=== PATIENT | female | born 1960 | race Caucasian/White ===

== ENCOUNTER 2017-04-03 03:47 | Inpatient (IN) | payer OTHER ==
[2017-04-03] VITALS (13 sets, daily range): BP systolic 109–180; BP diastolic 60–98; PULSE 55–68; RESP 14–32; TEMP 97.4–97.9; O2SAT 92–98
[2017-04-03 04:26] LABS: AUTOMATED NEUTROPHIL # 4.6 TH/MM3 (1.8-7.7); BASOPHIL % 0.6 % (0.0-2.0); EOSINOPHIL % 0.7 % (0.0-4.0); HEMATOCRIT 36.4 % (35.0-46.0); HEMOGLOBIN 12.4 GM/DL (11.6-15.3); LYMPH % 14.6 % (9.0-44.0); LYMPHOCYTE # 0.9 TH/MM3 (1.0-4.8); MEAN CELL VOLUME 90.4 FL (80.0-100.0); MEAN CORPUSCULAR HEMOGLOBIN 30.8 PG (27.0-34.0); MEAN CORPUSCULAR HGB CONC 34.1 % (32.0-36.0); MEAN PLATELET VOLUME 7.8 FL (7.0-11.0); MONO % 6.5 % (0.0-8.0); MONOCYTE # 0.4 TH/MM3 (0-0.9); NEUT % 77.6 % (16.0-70.0); PLATELET COUNT 244 TH/MM3 (150-450); RED BLOOD COUNT 4.03 MIL/MM3 (4.00-5.30); RED CELL DISTRIBUTION WIDTH 14.1 % (11.6-17.2); WHITE BLOOD COUNT 5.9 TH/MM3 (4.0-11.0)
[2017-04-03 04:28] LABS: BILIRUBIN, URINE NEG (NEG); BLOOD, URINE NEG (NEG); GLUCOSE,URINE NEG (NEG); KETONE, URINE NEG (NEG); MUCUS URINE FEW /lpf (OCC); NITRITE,URINE NEG (NEG); SQUAMOUS EPITHELIAL CELL URINE 1 /hpf (0-5); URINE COLOR LIGHT-YELLOW (YELLW/STRAW); URINE LEUKOCYTE ESTERASE NEG (NEG)
[2017-04-03 04:37] LABS: INTERNATIONAL NORMALIZED RATIO 1.1 RATIO; PROTHROMBIN TIME - PATIENT 10.8 SEC (9.8-11.6)
[2017-04-03 04:50] LABS: ALBUMIN 2.8 GM/DL (3.4-5.0); ALT (GPT) 151 U/L (10-53); AST (GOT) 140 U/L (15-37); BICARBONATE 21.8 MEQ/L (21.0-32.0); BLOOD UREA NITROGEN 7 MG/DL (7-18); CHLORIDE 105 MEQ/L (98-107); CREATININE 0.77 MG/DL (0.50-1.00); GLOMERULAR FILTRATION RATE 78 ML/MIN (>89); GLUCOSE,RANDOM 151 MG/DL (74-106); SODIUM (NA) 137 MEQ/L (136-145)
[2017-04-03 04:53] LABS: ACETAMINOPHEN LESS THAN 2.0 MCG/ML (10.0-30.0); ALKALINE PHOSPHATASE 97 U/L (45-117); TOTAL BILIRUBIN ADULT 0.2 MG/DL (0.2-1.0); TOTAL PROTEIN 6.4 GM/DL (6.4-8.2)
--- NOTE | 2017-04-03 05:44 | PD ---
HPI Chief Complaint: OD/ Ingestion Time Seen by Provider: 03:50 Travel History International Travel<30 days: No Contact w/Intl Traveler<30days: No Traveled to known affect area: No History of Present Illness HPI Patient is a 57-year-old female presents emergency department for evaluation after apparent clonidine overdose. The patient had admitted to EMS that this was an in a suicide attempt. She also endorses marijuana and alcohol use tonight. She admitted to EMS that she changed her mind and called 911 because she did not want to anymore. She has a history of anxiety and is prescribed clonidine for anxiety. No pill bottles were available on scene. The patient was initially hypotensive 60/40 and bradycardic, half milligram of atropine was given by EMS in route. On arrival the patient is GCS of 14 losing one point for eyes, she denies suicidal attempt to me. She has placed under Song act by law enforcement. Fairly somnolent this somewhat limits her history but she denies any chest pain abdominal pain nausea vomiting shortness of breath head injury neck injury. PFSH Past Medical History Bipolar Disorder: Yes Anxiety: Yes Tetanus Vaccination: Unknown Influenza Vaccination: No Past Surgical History Surgical History: No Previous Surgery Social History Alcohol Use: Yes Tobacco Use: Yes Substance Use: No Allergies-Medications (Allergen,Severity, Reaction): Uncoded Allergies: SULFA DRUGS (Allergy, Unknown, 04/03/17) Reported Meds & Prescriptions Reported Meds & Active Scripts Active Reported Gabapentin 600 Mg Tab 600 Mg PO DAILY PRN Clonidine (Clonidine HCl) 0.1 Mg Tab 1 Mg PO TID Adderall (Amphetamine-Dextroamphetamine) 20 Mg Tab 20 Mg PO BID Avoid late evening doses. Space doses at least 4 to 6 hours if more than once/day dosing. Valsartan 40 Mg Tab Unknown Dose PO DAILY Lamictal (Lamotrigine) 100 Mg Tab 100 Mg PO DAILY Cymbalta DR (Duloxetine HCl) 60 Mg Capdr 60 Mg PO DAILY Geodon (Ziprasidone) 40 Mg Cap 40 Mg PO BID Review of Systems Except as stated in HPI: all other systems reviewed are Neg Physical Exam Narrative GENERAL: Well-developed overweight female in no obvious distress SKIN: Focused skin assessment warm/dry. HEAD: Atraumatic. Normocephalic. EYES: Pupils equal and round. No scleral icterus. No injection or drainage. ENT: No nasal bleeding or discharge. Mucous membranes pink and moist. NECK: Trachea midline. No JVD. CARDIOVASCULAR: Regular rate and rhythm. No murmur appreciated. RESPIRATORY: No accessory muscle use. Clear to auscultation. Breath sounds equal bilaterally. GASTROINTESTINAL: Abdomen soft, non-tender, nondistended. Hepatic and splenic margins not palpable. MUSCULOSKELETAL: No obvious deformities. No clubbing. No cyanosis. No edema. NEUROLOGICAL: Awake and alert and oriented but somnolent. GCS of 14, moves all 4 extremities, no obvious cranial nerve deficits PSYCHIATRIC: Appropriate mood and affect; insight fair, judgment poor. Denies suicidal or homicidal ideation to me, she did endorse it to EMS personnel. Data Data Last Documented VS Vital Signs Date Time Temp Pulse Resp B/P (MAP) Pulse Ox O2 Delivery O2 Flow Rate FiO2 04/03/17 05:15 59 14 157/87 (110) 94 Nasal Cannula 3.00 04/03/17 03:54 97.9 Orders Orders Complete Blood Count With Diff (04/03/17 03:51) Comprehensive Metabolic Panel (04/03/17 03:51) Prothrombin Time / Inr (Pt) (04/03/17 03:51) Act Partial Throm Time (Ptt) (04/03/17 03:51) Urinalysis - C+S If Indicated (04/03/17 03:51) Iv Access Insert/Monitor (04/03/17 03:51) Ecg Monitoring (04/03/17 03:51) Oximetry (04/03/17 03:51) Call Poison Control (04/03/17 03:51) Drug Screen, Random Urine (04/03/17 03:51) Alcohol (Ethanol) (04/03/17 03:51) Salicylates (Aspirin) (04/03/17 03:51) Tylenol (Acetaminophen) (04/03/17 03:51) ^ Straight Catheter (04/03/17 04:06) Electrocardiogram (04/03/17 ) Salicylates (Aspirin) (04/03/17 06:09) Tylenol (Acetaminophen) (04/03/17 06:10) Acetylcysteine Inj (Acetadote Inj) (04/03/17 06:15) Acetylcysteine Inj (Acetadote Inj) (04/03/17 07:15) Acetylcysteine Inj (Acetadote Inj) (04/03/17 11:15) Admit To Inpatient (04/03/17 ) Vital Signs (Adult) Q4H (04/03/17 06:35) Activity Oob With Assistance (04/03/17 06:35) Architectural Wood Model Maker / Telemetry .CONTINUOUS (04/03/17 06:35) Sodium Chloride 0.9% Flush (Ns Flush) (04/03/17 06:45) Sodium Chloride 0.9% Flush (Ns Flush) (04/03/17 09:00) Ondansetron Inj (Zofran Inj) (04/03/17 06:45) Comprehensive Metabolic Panel (04/04/17 06:00) Complete Blood Count With Diff (04/04/17 06:00) Scd Bilateral/Knee High MORELIA.BID (04/03/17 06:35) Naloxone Inj (Narcan Inj) (04/03/17 06:45) Docusate Sodium-Senna (Philomena-Colace) (04/03/17 09:00) Magnesium Hydroxide Liq (Milk Of Magnesi (04/03/17 06:45) Sennosides (Senokot) (04/03/17 06:45) Bisacodyl Supp (Dulcolax Supp) (04/03/17 06:45) Lactulose Liq (Lactulose Liq) (04/03/17 06:45) Inpatient Certification (04/03/17 ) Tylenol (Acetaminophen) (04/03/17 08:00) Consult Psychiatry (04/03/17 ) Admit Order (Ed Use Only) (04/03/17 ) Labs Laboratory Tests Test 04/03/17 03:45 04/03/17 04:10 04/03/17 06:20 White Blood Count 5.9 TH/MM3 Red Blood Count 4.03 MIL/MM3 Hemoglobin 12.4 GM/DL Hematocrit 36.4 % Mean Corpuscular Volume 90.4 FL Mean Corpuscular Hemoglobin 30.8 PG Mean Corpuscular Hemoglobin Concent 34.1 % Red Cell Distribution Width 14.1 % Platelet Count 244 TH/MM3 Mean Platelet Volume 7.8 FL Neutrophils (%) (Auto) 77.6 % Lymphocytes (%) (Auto) 14.6 % Monocytes (%) (Auto) 6.5 % Eosinophils (%) (Auto) 0.7 % Basophils (%) (Auto) 0.6 % Neutrophils # (Auto) 4.6 TH/MM3 Lymphocytes # (Auto) 0.9 TH/MM3 Monocytes # (Auto) 0.4 TH/MM3 Eosinophils # (Auto) 0.0 TH/MM3 Basophils # (Auto) 0.0 TH/MM3 CBC Comment DIFF FINAL Differential Comment Prothrombin Time 10.8 SEC Prothromb Time International Ratio 1.1 RATIO Activated Partial Thromboplast Time 26.8 SEC Blood Urea Nitrogen 7 MG/DL Creatinine 0.77 MG/DL Random Glucose 151 MG/DL Total Protein 6.4 GM/DL Albumin 2.8 GM/DL Calcium Level 8.0 MG/DL Alkaline Phosphatase 97 U/L Aspartate Amino Transf (AST/SGOT) 140 U/L Alanine Aminotransferase (ALT/SGPT) 151 U/L Total Bilirubin 0.2 MG/DL Sodium Level 137 MEQ/L Potassium Level 4.1 MEQ/L Chloride Level 105 MEQ/L Carbon Dioxide Level 21.8 MEQ/L Anion Gap 10 MEQ/L Estimat Glomerular Filtration Rate 78 ML/MIN Salicylates Level 5.2 MG/DL 4.8 MG/DL Acetaminophen Level LESS THAN 2.0 MCG/ML LESS THAN 2.0 MCG/ML Ethyl Alcohol Level 126 MG/DL Urine Color LIGHT-YELLOW Urine Turbidity CLEAR Urine pH 7.0 Urine Specific [place] 1.005 Urine Protein TRACE mg/dL Urine Glucose (UA) NEG mg/dL Urine Ketones NEG mg/dL Urine Occult Blood NEG Urine Nitrite NEG Urine Bilirubin NEG Urine Urobilinogen LESS THAN 2.0 MG/DL Urine Leukocyte Esterase NEG Urine RBC 1 /hpf Urine WBC 1 /hpf Urine Squamous Epithelial Cells 1 /hpf Urine Mucus FEW /lpf Microscopic Urinalysis Comment CATH-CULT NOT IND Urine Opiates Screen NEG Urine Barbiturates Screen NEG Urine Amphetamines Screen NEG Urine Benzodiazepines Screen NEG Urine Cocaine Screen NEG Urine Cannabinoids Screen NEG MDM Medical Decision Making Medical Screen Exam Complete: Yes Emergency Medical Condition: Yes Interpretation(s) EKG shows sinus rhythm at a rate of 62, intervals within normal limits, normal axis normal R-wave progression. No concerning ST segment changes. This is a normal EKG Differential Diagnosis Clonidine overdose, alcohol intoxication, suicidal attempts, Narrative Course Patient room to the emergency department, initial blood pressure on scene 60 systolic she has been increasing steadily to 130s without significant intervention by me. She did receive 0.5 mg of atropine in route as well as 1000 cc of normal saline, patient is under a Song act. Discussed with poison control they recommend testing for other substance ingestion, she is fairly somnolent,but improving. A repeat EKG has been ordered according to poison control recommendations. ON REASSESSMENT, REPEAT DISCUSSION WITH POISON CONTROL, THEY ARE RECOMMENDING ACETADOTE EMPERICALLY FOR ELEVATED LIVER ENZYMES. WE WILL COMPLY AND ADMIT. Jean Claude Lane MD Apr 03, 2017 05:44
[2017-04-03] MEDS ORDERED: WATER IV ONE ×2 (06:15)
[2017-04-03] MEDS ORDERED: ACETYLCYSTEINE IV ONE ×4 (06:15→11:15)
[2017-04-03] MEDS ORDERED: DEXTROSE 5% IV ONE ×4 (06:15→11:15)
[2017-04-03] MEDS ORDERED: LAMO100 PO (06:28)
[2017-04-03] MEDS ORDERED: CYMB60CA PO (06:28)
[2017-04-03] MEDS ORDERED: VALS1TAB63 PO (06:28)
[2017-04-03] MEDS ORDERED: ADDE20 PO (06:28)
[2017-04-03] MEDS ORDERED: ZIPR40 PO (06:28)
[2017-04-03] MEDS ORDERED: GABA600T PO (06:28)
[2017-04-03] MEDS ORDERED: CLON0.1T PO (06:28)
[2017-04-03] MEDS ORDERED: MAGNESIUM HYDROXIDE SUSP 30 ML CUP PO PRN (06:45)
[2017-04-03] MEDS ORDERED: LACTULOSE SYRUP 20 GM/30 ML CUP PO PRN (06:45)
[2017-04-03] MEDS ORDERED: SODIUM CHLORIDE 0.9% FLUSH 10 ML FLUSH IV FLUSH PRN (06:45)
[2017-04-03] MEDS ORDERED: BISACODYL 10 MG SUPP RECTAL PRN (06:45)
[2017-04-03] MEDS ORDERED: ONDANSETRON HCL 4 MG/2 ML VIAL IVP PRN (06:45)
[2017-04-03] MEDS ORDERED: NALOXONE HCL 0.4 MG/ML AMP IV PUSH PRN (06:45)
[2017-04-03] MEDS ORDERED: SENNOSIDES 8.6 MG TAB PO PRN (06:45)
[2017-04-03] MEDS ORDERED: ACETYLCYSTEINE INJ 3,750 MG in DEXTROSE 5% IN WATE 500 ML INJ 500 ML IV ONE ×2 (07:15)
[2017-04-03] MEDS ORDERED: LORazepam 2 MG/ML VIAL ONE (08:20)
[2017-04-03] MEDS ORDERED: LORazepam 2 MG/ML VIAL IV PUSH ONE (08:30)
[2017-04-03] MEDS ORDERED: LORazepam 2 MG TAB PO PRN (09:00)
[2017-04-03] MEDS: DOCUSATE SODIUM 50 MG/SENNA 8.6 MG TAB PO SCH ×2 (09:00→19:25)
[2017-04-03] MEDS ORDERED: LORazepam 2 MG/ML VIAL IV PUSH PRN ×2 (09:00)
[2017-04-03] MEDS ORDERED: FLUMAZENIL 0.5 MG/5 ML VIAL IV PUSH PRN (09:00)
[2017-04-03] MEDS ORDERED: ENALAPRILAT 1.25 MG/ML VIAL IV PUSH PRN (09:00)
[2017-04-03] MEDS: SODIUM CHLORIDE 0.9% FLUSH 10 ML FLUSH IV FLUSH SCH ×2 (09:00→19:26)
--- NOTE | 2017-04-03 09:45 | RADRPT ---
EXAM DATE/TIME: 04/03/2017 09:22 [facility] COMPARISON: No previous studies available for comparison. INDICATIONS : Patient attempted overdose. MEDICAL HISTORY : None. SURGICAL HISTORY : None. ENCOUNTER: Initial ACUITY: 1 day PAIN SCORE: Non-responsive. LOCATION: Bilateral upper chest FINDINGS: A single view of the chest demonstrates the lungs to be symmetrically aerated without evidence of mas s, infiltrate or effusion. The cardiomediastinal contours are unremarkable. Osseous structures are intact. CONCLUSION: No acute disease. Alex Cohen MD on April 03, 2017 at 9:42 Board Certified Radiologist. This report was verified electronically.
[2017-04-03] MEDS ORDERED: WATE IV ONE ×2 (11:15)
--- NOTE | 2017-04-03 12:31 | PD.PSY.CON ---
Provisional Diagnosis Admission Date Apr 03, 2017 at 06:38 [place] I. Unspecified psychosis, r/o acute substance intoxication, history of mood disorder, anxiety, alcohol and amphetamine use disorder [place] II. Borderline personality disorder [place] III. Hypertension, COPD History of Present Illness Service Psychiatry Consult Requested By Medical team Reason for Consult Suicidal attempt Primary Care Physician Unknown HPI The patient is a is a 57-year-old woman, domiciled with her fianc, with self-reported psychiatric history of mood disorder, anxiety, borderline personality disorder, previous psychiatric hospitalizations, history of suicide attempts, she reports she is in Adderall 20 mg, she is not clear for what reason , she has a reported history of alcoholism, multiple detox/rehabilitation is in the past, medical history of COPD, hypertension, who presents emergency department for evaluation after apparent clonidine overdose with suicidal intentions. The patient had admitted to EMS that this was an in a suicide attempt. She also endorses marijuana and alcohol use tonight. She admitted to EMS that she changed her mind and called 911 because she did not want to anymore. She has a history of anxiety and is prescribed clonidine for anxiety. No pill bottles were available on scene. The patient was initially hypotensive 60/40 and bradycardic, half milligram of atropine was given by EMS in route. On arrival the patient is GCS of 14 losing one point for eyes, she denies suicidal attempt to me. She has placed under Song act by law enforcement. Fairly somnolent this somewhat limits her history but she denies any chest pain abdominal pain nausea vomiting shortness of breath head injury neck injury. The patient is seen for psychiatric evaluation. Chart was reviewed. In the medical floor accompanied with a one-to-one sitter. The patient is restless, very disorganized, talking nonsensical words. At the beginning patient was guarded and evasive. The patient is very labile, crying throughout the evaluation, she has very dilated pupils, at times becoming coherent. However, she says that she tried to overdose last night after an argument with her boyfriend. She says that she thought that she didn't want to live anymore. She reports that she was using marijuana and alcohol, "I was very drunk, and he was too". Review of Systems Constitutional: DENIES: Diaphoretic episodes, Fatigue, Fever, Weight gain, Weight loss, Chills, Dizziness, Change in appetite, Night Sweats Endocrine: DENIES: Abnorml menstrual pattern, Heat/cold intolerance, Polydipsia , Polyuria, Polyphagia Eyes: DENIES: Blurred vision, Diplopia, Eye inflammation, Eye pain, Vision loss , Photosensitivity, Double Vision Ears, nose, mouth, throat: DENIES: Tinnitus, Hearing loss, Vertigo, Nasal discharge, Oral lesions, Throat pain, Hoarseness, Ear Pain, Running Nose, Epistaxis, Sinus Pain, Toothache, Odynophagia Respiratory: DENIES: Apneas, Cough, Snoring, Wheezing, Hemoptysis, Sputum production, Shortness of breath Cardiovascular: DENIES: Chest pain, Palpitations, Syncope, Dyspnea on Exertion , PND, Lower Extremity Edema, Orthopnea, Claudication Gastrointestinal: DENIES: Abdominal pain, Black stools, Bloody stools, Constipation, Diarrhea, Nausea, Vomiting, Difficulty Swallowing, Anorexia Genitourinary: DENIES: Abnormal vaginal bleeding, Dysmenorrhea, Dyspareunia, Sexual dysfunction, Urinary frequency, Urinary incontinence, Urgency, Hematuria , Dysuria, Nocturia, Vaginal discharge Musculoskeletal: DENIES: Joint pain, Muscle aches, Stiffness, Joint Swelling, Back pain, Neck pain Integumentary: DENIES: Abnormal pigmentation, Pruritus, Rash, Nail changes, Breast masses, Breast skin changes, Nipple discharge Hematologic/lymphatic: DENIES: Bruising, Lymphadenopathy Immunologic/allergic: DENIES: Eczema, Urticaria Neurologic: DENIES: Abnormal gait, Headache, Localized weakness, Paresthesias, Seizures, Speech Problems, Tremor, Poor Balance Psychiatric: COMPLAINS OF: Depression, Suicidal Ideation, DENIES: Anxiety, Confusion, Mood changes, Hallucinations, Agitation, Homicidal Ideation, Delusions Past Family Social History Uncoded Allergies: SULFA DRUGS (Allergy, Unknown, 04/03/17) Reported Medications Gabapentin (Gabapentin) 600 Mg Tab, 600 MG PO DAILY Y for TREMULOUSNESS, #60 TAB 0 Refills 04/03/17 Clonidine (Clonidine) 0.1 Mg Tab, 1 MG PO TID for Blood Pressure Management, # 60 TAB 0 Refills 04/03/17 Amphetamine-Dextroamphetamine (Adderall) 20 Mg Tab, 20 MG PO BID for Hyperactivity Control, #60 TAB 0 Refills Avoid late evening doses. Space doses at least 4 to 6 hours if more than once/day dosing. 04/03/17 Valsartan (Valsartan) 40 Mg Tab, PO DAILY, #30 TAB 0 Refills 04/03/17 Lamotrigine (Lamictal) 100 Mg Tab, 100 MG PO DAILY for Control Seizures, #30 TAB 0 Refills 04/03/[address] (Cymbalta DR) 60 Mg Capdr, 60 MG PO DAILY, #30 CAP 0 Refills 04/03/17 Ziprasidone (Geodon) 40 Mg Cap, 40 MG PO BID, #60 CAP 0 Refills 04/03/17 Current Medications Medications (Trade) Dose Ordered Sig/Mary Alice Route Start Time Stop Time Status Last Admin Acetylcysteine 7500 mg/Dextrose 1,037.5 ml @ 62.5 mls/ hr ONCE ONCE IV 04/03/17 11:15 04/04/17 03:50 04/03/17 11:15 (NS Flush) 2 ml UNSCH PRN IV FLUSH 04/03/17 06:45 (NS Flush) 2 ml BID IV FLUSH 04/03/17 09:00 (Zofran Inj) 4 mg Q6H PRN IVP 04/03/17 06:45 (Narcan Inj) 0.4 mg UNSCH PRN IV PUSH 04/03/17 06:45 (Philomena-Colace) 1 tab BID PO 04/03/17 09:00 (Milk Of Magnesia Liq) 30 ml Q12H PRN PO 04/03/17 06:45 (Senokot) 17.2 mg Q12H PRN PO 04/03/17 06:45 (Dulcolax Supp) 10 mg DAILY PRN RECTAL 04/03/17 06:45 (Lactulose Liq) 30 ml DAILY PRN PO 04/03/17 06:45 (Romazicon Inj) 0.2 mg Q1M PRN IV PUSH 04/03/17 09:00 (Ativan) 1 mg Q4H PRN PO 04/03/17 09:00 (Ativan) 2 mg Q2H PRN PO 04/03/17 09:00 (Ativan Inj) 2 mg Q1H PRN IV PUSH 04/03/17 09:00 (Ativan Inj) 2 mg Q15M PRN IV PUSH 04/03/17 09:00 (Vasotec Inj) 1.25 mg Q8H PRN IV PUSH 04/03/17 09:00 Family Psych History She denies family psychiatric history Social History She stated that she is from [place], she lives in [place] with her fianc. Patient's Strengths (min. 2) Under observation Physical Exam Vital Signs Vital Signs Date Time Temp Pulse Resp B/P (MAP) Pulse Ox O2 Delivery O2 Flow Rate FiO2 04/03/17 11:38 97.4 57 20 164/98 (120) 98 04/03/17 08:00 Room Air 04/03/17 05:15 3.00 I/O 04/03/17 04/03/17 04/04/17 08:00 16:00 00:00 Intake Total 756.25 ml Balance 756.25 ml Lab Results Test 04/03/17 03:45 04/03/17 04:10 04/03/17 06:20 04/03/17 11:47 White Blood Count 5.9 TH/MM3 Red Blood Count 4.03 MIL/MM3 Hemoglobin 12.4 GM/DL Hematocrit 36.4 % Mean Corpuscular Volume 90.4 FL Mean Corpuscular Hemoglobin 30.8 PG Mean Corpuscular Hemoglobin Concent 34.1 % Red Cell Distribution Width 14.1 % Platelet Count 244 TH/MM3 Mean Platelet Volume 7.8 FL Neutrophils (%) (Auto) 77.6 % Lymphocytes (%) (Auto) 14.6 % Monocytes (%) (Auto) 6.5 % Eosinophils (%) (Auto) 0.7 % Basophils (%) (Auto) 0.6 % Neutrophils # (Auto) 4.6 TH/MM3 Lymphocytes # (Auto) 0.9 TH/MM3 Monocytes # (Auto) 0.4 TH/MM3 Eosinophils # (Auto) 0.0 TH/MM3 Basophils # (Auto) 0.0 TH/MM3 CBC Comment DIFF FINAL Differential Comment Prothrombin Time 10.8 SEC Prothromb Time International Ratio 1.1 RATIO Activated Partial Thromboplast Time 26.8 SEC Blood Urea Nitrogen 7 MG/DL Creatinine 0.77 MG/DL Random Glucose 151 MG/DL Total Protein 6.4 GM/DL Albumin 2.8 GM/DL Calcium Level 8.0 MG/DL Alkaline Phosphatase 97 U/L Aspartate Amino Transf (AST/SGOT) 140 U/L Alanine Aminotransferase (ALT/SGPT) 151 U/L Total Bilirubin 0.2 MG/DL Sodium Level 137 MEQ/L Potassium Level 4.1 MEQ/L Chloride Level 105 MEQ/L Carbon Dioxide Level 21.8 MEQ/L Anion Gap 10 MEQ/L Estimat Glomerular Filtration Rate 78 ML/MIN Salicylates Level 5.2 MG/DL 4.8 MG/DL Acetaminophen Level LESS THAN 2.0 MCG/ML LESS THAN 2.0 MCG/ML Ethyl Alcohol Level 126 MG/DL Urine Color LIGHT-YELLOW Urine Turbidity CLEAR Urine pH 7.0 Urine Specific [place] 1.005 Urine Protein TRACE mg/dL Urine Glucose (UA) NEG mg/dL Urine Ketones NEG mg/dL Urine Occult Blood NEG Urine Nitrite NEG Urine Bilirubin NEG Urine Urobilinogen LESS THAN 2.0 MG/DL Urine Leukocyte Esterase NEG Urine RBC 1 /hpf Urine WBC 1 /hpf Urine Squamous Epithelial Cells 1 /hpf Urine Mucus FEW /lpf Microscopic Urinalysis Comment CATH-CULT NOT IND Urine Opiates Screen NEG Urine Barbiturates Screen NEG Urine Amphetamines Screen NEG Urine Benzodiazepines Screen NEG Urine Cocaine Screen NEG Urine Cannabinoids Screen NEG Mental Status Examination Appearance: Appropriate Consciousness: Clouded, Intoxicated Orientation: Person, Date/Time Motor Activity: Abnormal gait Speech: Incoherent Language: Perseveration Fund of Knowledge: Inadequate Attention and Concentration: Easily Distracted Memory: Impaired Mood: Sad, Oppositional Affect: Irritable, Labile Thought Process & Associations: Loose associations Thought Content: Bizarre thinking Hallucination Type: None Delusion Type: None Suicidal Ideation: Yes Suicidal Plan: No Suicidal Intention: No Homicidal Ideation: No Homicidal Plan: No Homicidal Intention: No Insight: Poor Judgment: Poor Assessment & Plan Problem List: (1) Unspecified psychosis ICD Codes: F29 - Unspecified psychosis not due to a substance or known physiological condition Assessment & Plan: On psychiatric evaluation today the patient is a poor historian, poorly cooperative, disorganized, with Adrien loosening of associations, incoherent speech, but she does report that she tried to commit suicide by overdosing after an argument with her boyfriend. He also reports that she was intoxicated with alcohol and cannabis, she also reports that she is in Adderall 20 mg, but she is unable to clarify for what condition. She also reports history of mood disorder, borderline personality disorder, and previous psychiatric hospitalizations. Due to the level of psychotic speech and behavior patient is not really reliable. She needs to be stabilized medically. Continue one-to-one sitter in the floor for safety. CIWA protocol. Once the patient is medically stable please transfer to psychiatry to complete psychiatric assessment, for psychiatric hospitalization and safety. Assessment & Plan Estimated LOS: days Nick Ramsey MD Apr 03, 2017 12:31
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
[2017-04-03] MEDS: LORazepam 1 MG TAB PO PRN ×3 (15:25→22:02)
--- NOTE | 2017-04-03 15:29 | EKG ---
Date Performed: 04/03/2017 Time Performed: 03:48:22 PTAGE: 57 years EKG: Sinus rhythm NORMAL ECG NO PREVIOUS TRACING DOCTOR: Chetan Wood Interpretating Date/Time 04/03/2017 15:28:53
--- NOTE | 2017-04-03 15:29 | EKG ---
Date Performed: 04/03/2017 Time Performed: 05:55:35 PTAGE: 57 years EKG: SINUS BRADYCARDIA BORDERLINE ECG Since PREVIOUS TRACING , no significant change noted PREVIOUS TRACIN04/03/2017 03.48.22 DOCTOR: Chetan Wood Interpretating Date/Time 04/03/2017 15:29:15
[2017-04-03 19:52] LABS: BACTERIA, URINE MOD /hpf; BILIRUBIN, URINE NEG (NEG); BLOOD, URINE MOD (NEG); GLUCOSE,URINE NEG (NEG); KETONE, URINE NEG (NEG); NITRITE,URINE NEG (NEG); SQUAMOUS EPITHELIAL CELL URINE 2 /hpf (0-5); URINE COLOR YELLOW (YELLW/STRAW); URINE LEUKOCYTE ESTERASE LARGE (NEG); WHITE BLOOD CELL CLUMPS MANY
--- NOTE | 2017-04-03 20:55 | RADRPT ---
EXAM DATE/TIME: 04/03/2017 20:05 [facility] COMPARISON: No previous studies available for comparison. INDICATIONS : Increased lab values. MEDICAL HISTORY : Hypertension. ADHD. Bipolar disorder. Depression. Substance use. Tobacco use. SURGICAL HISTORY : None. ENCOUNTER: Initial ACUITY: 1 day PAIN SCORE: 2/10 LOCATION: Bilateral upper quadrant MEASUREMENTS: LIVER: 18.5 cm length COMMON DUCT: 6 mm RIGHT KIDNEY: 10.1 x 3.5 x 5.1 cm SPLEEN: 8.9 cm length FINDINGS: The liver is slightly echogenic which maybe due to fatty infiltration and or hepatocellular dysfuncti on. The gallbladder is intact without any evidence for gallstones, gallbladder wall thickening, or pe richolecystic fluid. The visualized head of the pancreas, and right kidney appear grossly intact for technique. CONCLUSION: The liver is slightly echogenic which maybe due to fatty infiltration and or hepatoce llular dysfunction. Daren Fisher MD on April 03, 2017 at 20:52 Board Certified Radiologist. This report was verified electronically.
[2017-04-04] VITALS (8 sets, daily range): BP systolic 130–148; BP diastolic 74–83; PULSE 54–62; RESP 16–18; TEMP 96.7–98.1; O2SAT 95–98
[2017-04-04 01:42] LABS: AUTOMATED NEUTROPHIL # 7.2 TH/MM3 (1.8-7.7); BASOPHIL % 0.3 % (0.0-2.0); EOSINOPHIL % 0.3 % (0.0-4.0); HEMATOCRIT 37.6 % (35.0-46.0); HEMOGLOBIN 13.3 GM/DL (11.6-15.3); LYMPH % 11.1 % (9.0-44.0); MEAN CELL VOLUME 88.8 FL (80.0-100.0); MEAN CORPUSCULAR HEMOGLOBIN 31.4 PG (27.0-34.0); MEAN CORPUSCULAR HGB CONC 35.3 % (32.0-36.0); MEAN PLATELET VOLUME 8.1 FL (7.0-11.0); MONO % 8.5 % (0.0-8.0); MONOCYTE # 0.8 TH/MM3 (0-0.9); NEUT % 79.8 % (16.0-70.0); PLATELET COUNT 219 TH/MM3 (150-450); RED BLOOD COUNT 4.23 MIL/MM3 (4.00-5.30); RED CELL DISTRIBUTION WIDTH 14.3 % (11.6-17.2)
[2017-04-04] MEDS: LORazepam 1 MG TAB PO PRN ×3 (02:03→18:10)
[2017-04-04 02:11] LABS: ALT (GPT) 130 U/L (10-53); AST (GOT) 74 U/L (15-37); BICARBONATE 26.8 MEQ/L (21.0-32.0); BLOOD UREA NITROGEN 7 MG/DL (7-18); CALCIUM 8.3 MG/DL (8.5-10.1); CHLORIDE 97 MEQ/L (98-107); CREATININE 0.67 MG/DL (0.50-1.00); DIRECT BILIRUBIN ADULT 0.1 MG/DL (0.0-0.2); GLOMERULAR FILTRATION RATE 91 ML/MIN (>89); GLUCOSE,RANDOM 151 MG/DL (74-106); SODIUM (NA) 132 MEQ/L (136-145)
[2017-04-04 02:32] LABS: ALKALINE PHOSPHATASE 85 U/L (45-117); TOTAL BILIRUBIN ADULT 0.6 MG/DL (0.2-1.0); TOTAL PROTEIN 6.8 GM/DL (6.4-8.2)
[2017-04-04 05:29] LABS: INTERNATIONAL NORMALIZED RATIO 1.1 RATIO; PROTHROMBIN TIME - PATIENT 10.9 SEC (9.8-11.6)
[2017-04-04] MEDS: DOCUSATE SODIUM 50 MG/SENNA 8.6 MG TAB PO SCH (09:00)
[2017-04-04] MEDS: SODIUM CHLORIDE 0.9% FLUSH 10 ML FLUSH IV FLUSH SCH (09:00)
[2017-04-04] MEDS: NITROFURANTOIN MONOHYD MACROCR 100 MG CAP PO SCH ×2 (10:03→16:13)
[2017-04-04 12:03] LABS: HEMOGLOBIN A1C 6.3 % (4.3-6.0)
[2017-04-04] MEDS ORDERED: LORazepam INJ IV PUSH ×2 (13:01)
[2017-04-04] MEDS ORDERED: LORA-474 PO (13:01)
[2017-04-04] MEDS ORDERED: LORA-475 PO (13:01)
[2017-04-04] MEDS ORDERED: NITR100C4 PO (13:01)
[2017-04-04] MEDS ORDERED: FLUM0.5I3 IV PUSH (13:01)
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
--- NOTE | 2017-04-05 14:26 | PD.PSY.CON ---
Provisional Diagnosis Admission Date Apr 03, 2017 at 06:38 [place] I. Unspecified psychosis, r/o acute substance intoxication, history of mood disorder, anxiety, alcohol and amphetamine use disorder [place] II. Borderline personality disorder [place] III. Hypertension, COPD History of Present Illness Service Psychiatry Primary Care Physician Unknown HPI The patient is a is a 57-year-old woman, domiciled with her fianc, with self-reported psychiatric history of mood disorder, anxiety, borderline personality disorder, previous psychiatric hospitalizations, history of suicide attempts, she reports she is in Adderall 20 mg, she is not clear for what reason , she has a reported history of alcoholism, multiple detox/rehabilitation is in the past, medical history of COPD, hypertension, who presents emergency department for evaluation after apparent clonidine overdose with suicidal intentions. The patient had admitted to EMS that this was an in a suicide attempt. She also endorses marijuana and alcohol use tonight. She admitted to EMS that she changed her mind and called 911 because she did not want to anymore. She has a history of anxiety and is prescribed clonidine for anxiety. No pill bottles were available on scene. The patient was initially hypotensive 60/40 and bradycardic, half milligram of atropine was given by EMS in route. On arrival the patient is GCS of 14 losing one point for eyes, she denies suicidal attempt to me. She has placed under [place] act by law enforcement. Fairly somnolent this somewhat limits her history but she denies any chest pain abdominal pain nausea vomiting shortness of breath head injury neck injury. The patient is seen for psychiatric evaluation. Chart was reviewed. In the medical floor accompanied with a one-to-one sitter. The patient is restless, very disorganized, talking nonsensical words. At the beginning patient was guarded and evasive. The patient is very labile, crying throughout the evaluation, she has very dilated pupils, at times becoming coherent. However, she says that she tried to overdose last night after an argument with her boyfriend. She says that she thought that she didn't want to live anymore. She reports that she was using marijuana and alcohol, "I was very drunk, and he was too". The patient is a is a 57-year-old woman, domiciled with her fianc, with self-reported psychiatric history of mood disorder, anxiety, borderline personality disorder, previous psychiatric hospitalizations, history of suicide attempts, she reports she is in Adderall 20 mg, she is not clear for what reason , she has a reported history of alcoholism, multiple detox/rehabilitation is in the past, medical history of COPD, hypertension, who presents emergency department for evaluation after apparent clonidine overdose with suicidal intentions. The patient had admitted to EMS that this was an in a suicide attempt. She also endorses marijuana and alcohol use tonight. She admitted to EMS that she changed her mind and called 911 because she did not want to anymore. She has a history of anxiety and is prescribed clonidine for anxiety. No pill bottles were available on scene. The patient was initially hypotensive 60/40 and bradycardic, half milligram of atropine was given by EMS in route. On arrival the patient is GCS of 14 losing one point for eyes, she denies suicidal attempt to me. She has placed under [place] act by law enforcement. Fairly somnolent this somewhat limits her history but she denies any chest pain abdominal pain nausea vomiting shortness of breath head injury neck injury. The patient is seen for psychiatric evaluation. Chart was reviewed. In the medical floor accompanied with a one-to-one sitter. The patient is restless, very disorganized, talking nonsensical words. At the beginning patient was guarded and evasive. The patient is very labile, crying throughout the evaluation, she has very dilated pupils, at times becoming coherent. However, she says that she tried to overdose last night after an argument with her boyfriend. She says that she thought that she didn't want to live anymore. She reports that she was using marijuana and alcohol, "I was very drunk, and he was too". Past Family Social History Uncoded Allergies: SULFA DRUGS (Allergy, Unknown, 04/03/17) Active Scripts Flumazenil (Flumazenil) 0.1 Mg/Ml Inj, 0.2 MG IV PUSH Q1M Y for SEE LABEL COMMENTS, #1 INJECTION Prov:Terrell Soler DO 04/04/17 [LORazepam INJ] 2 MG/ML INJ No Conflict Check, 2 MG IV PUSH Q15M Y for CIWA > 20 , #2 Prov:Terrell Soler DO 04/04/17 [LORazepam INJ] 2 MG/ML INJ No Conflict Check, 2 MG IV PUSH Q1H Y for CIWA 15-20 , #2 Prov:Terrell Soler DO 04/04/17 Lorazepam (Ativan) 2 Mg Tab, 2 MG PO Q2H Y for CIWA 11-14, #2 TAB Prov:Terrell Soler DO 04/04/17 Lorazepam (Ativan) 1 Mg Tab, 1 MG PO Q4H Y for CIWA 8 - 10, #2 TAB Prov:Terrell Soler DO 04/04/17 Nitrofurantoin Monohydrate Macrocrystals (Nitrofurantoin Monohydrate Macrocrystals) 100 Mg Cap, 100 MG PO BIDPC for UTI for 5 Days, CAP Prov:Terrell Soler DO 04/04/17 Reported Medications Valsartan (Valsartan) 40 Mg Tab, PO DAILY, #30 TAB 0 Refills 04/03/17 Discontinued Reported Medications Gabapentin (Gabapentin) 600 Mg Tab, 600 MG PO DAILY Y for TREMULOUSNESS, #60 TAB 0 Refills 04/03/17 Clonidine (Clonidine) 0.1 Mg Tab, 1 MG PO TID for Blood Pressure Management, # 60 TAB 0 Refills 04/03/17 Amphetamine-Dextroamphetamine (Adderall) 20 Mg Tab, 20 MG PO BID for Hyperactivity Control, #60 TAB 0 Refills Avoid late evening doses. Space doses at least 4 to 6 hours if more than once/day dosing. 04/03/17 Lamotrigine (Lamictal) 100 Mg Tab, 100 MG PO DAILY for Control Seizures, #30 TAB 0 Refills 04/03/[address] (Cymbalta ) 60 Mg Capdr, 60 MG PO DAILY, #30 CAP 0 Refills 04/03/17 Ziprasidone (Geodon) 40 Mg Cap, 40 MG PO BID, #60 CAP 0 Refills 04/03/17 Patient's Strengths (min. 2) Under observation Physical Exam Vital Signs Vital Signs Date Time Temp Pulse Resp B/P (MAP) Pulse Ox O2 Delivery O2 Flow Rate FiO2 04/04/17 16:08 97.4 54 18 130/74 (92) 95 04/03/17 08:00 Room Air 04/03/17 05:15 3.00 Lab Results Date/Time Source Procedure Growth Status 04/03/17 19:25 Urine Random Urine Urine Culture - Final Group B Beta Strep Complete Mental Status Examination Appearance: Appropriate Consciousness: Clouded, Intoxicated Orientation: Person, Date/Time Motor Activity: Abnormal gait Speech: Incoherent Language: Perseveration Fund of Knowledge: Inadequate Attention and Concentration: Easily Distracted Memory: Impaired Mood: Sad, Oppositional Affect: Irritable, Labile Thought Process & Associations: Loose associations Thought Content: Bizarre thinking Hallucination Type: None Delusion Type: None Suicidal Ideation: Yes Suicidal Plan: No Suicidal Intention: No Homicidal Ideation: No Homicidal Plan: No Homicidal Intention: No Insight: Poor Judgment: Poor Assessment & Plan Problem List: (1) Unspecified psychosis ICD Codes: F29 - Unspecified psychosis not due to a substance or known physiological condition Assessment & Plan: Have seen and examined this patient for second opinion. Reviewing documentation. I agree and concur with Dr. Santiago's assessment and plan. Also appreciated. Assessment & Plan Estimated LOS: Nick Dennis MD Apr 05, 2017 14:26
--- NOTE | 2017-04-05 23:10 | EKG ---
Date Performed: 04/04/2017 Time Performed: 10:35:00 PTAGE: 57 years EKG: SINUS BRADYCARDIA BORDERLINE ECG PREVIOUS TRACING : 04/03/2017 05.55 DOCTOR: Harvey Porter Interpretating Date/Time 04/05/2017 23:06:41
== END 2017-04-04 19:08 | DRG 918 ==
LOC: NEPE 03:47 → NEDA 06:38 → N06B 09:14
PROVIDERS: ADMIT Hospitalist; ATTEND Hospitalist
DX: T46.5X2A Poisoning by other antihypertensive drugs, intentional self-harm, initial encounter (principal); F29 Unspecified psychosis not due to a substance or known physiological condition; R00.1 Bradycardia, unspecified; I10 Essential (primary) hypertension; F10.239 Alcohol dependence with withdrawal, unspecified; R79.89 Other specified abnormal findings of blood chemistry; F17.210 Nicotine dependence, cigarettes, uncomplicated; R73.9 Hyperglycemia, unspecified; F60.3 Borderline personality disorder; F41.9 Anxiety disorder, unspecified; J44.9 Chronic obstructive pulmonary disease, unspecified
CPT/HCPCS: 71045; 76705; 80053; 80307; 81001; 82248; 83036; 85025; 85610; 85730; 87086; 93005; 99285; J0132; J2060; J7060; J7070

== ENCOUNTER 2017-04-04 17:48 | Inpatient (IN) | payer SELFPAY ==
[~2017-04-04] VITALS: Ht 160 cm; Wt 85.9 kg
[~2017-04-04 17:48] MED LIST: ADDE20 PO; CLON0.1T PO; CYMB60CA PO; FLUM0.5I3 IV PUSH; GABA600T PO; LAMO100 PO; LORA-474 PO; LORA-475 PO; LORazepam INJ IV PUSH; NITR100C4 PO; VALS1TAB63 PO; ZIPR40 PO
[2017-04-04 20:00] VITALS: BP 157/84; PULSE 56; RESP 20; TEMP 98.1; O2SAT 95
[2017-04-04] MEDS ORDERED: LORazepam 2 MG/ML VIAL IM PRN ×2 (20:30)
[2017-04-04] MEDS ORDERED: LORazepam 2 MG/ML VIAL IV PUSH PRN ×4 (20:30)
[2017-04-04] MEDS ORDERED: LORazepam 0.5 MG TAB PO PRN (20:30)
[2017-04-04] MEDS ORDERED: LORazepam 2 MG TAB PO PRN (20:30)
[2017-04-04] MEDS ORDERED: ALUMINUM/MAGNESIUM/SIMETH 30 ML CUP PO PRN (20:30)
[2017-04-04] MEDS ORDERED: MAGNESIUM HYDROXIDE SUSP 30 ML CUP PO PRN (20:30)
[2017-04-04] MEDS ORDERED: LORazepam 1 MG TAB PO PRN (20:30)
[2017-04-04] MEDS ORDERED: ACETAMINOPHEN 325 MG TAB PO PRN (20:30)
[2017-04-04] MEDS ORDERED: FLUMAZENIL 0.5 MG/5 ML VIAL IV PUSH PRN (20:30)
[2017-04-04] MEDS: LORazepam 1 MG TAB PO PRN ×2 (21:15→22:14)
[2017-04-05] MEDS: LORazepam 1 MG TAB PO PRN ×2 (00:47→10:21)
[2017-04-05 05:00] VITALS: BP 148/77; PULSE 60; RESP 20; TEMP 98.2; O2SAT 98
[2017-04-05 06:29] LABS: BICARBONATE 26.3 MEQ/L (21.0-32.0); BLOOD UREA NITROGEN 6 MG/DL (7-18); CALCIUM 8.5 MG/DL (8.5-10.1); CHLORIDE 100 MEQ/L (98-107); CREATININE 0.56 MG/DL (0.50-1.00); GLOMERULAR FILTRATION RATE 112 ML/MIN (>89); GLUCOSE,RANDOM 115 MG/DL (74-106); SODIUM (NA) 131 MEQ/L (136-145)
[2017-04-05 06:30] LABS: CHOLESTEROL 197 MG/DL (120-200); TRIGLYCERIDES 136 MG/DL (42-150)
[2017-04-05 06:32] LABS: CHOLESTEROL/ HDL RATIO 4.24 RATIO; HDL CHOLESTEROL 46.4 MG/DL (40.0-60.0); LDL CHOLESTEROL 123 MG/DL (0-99)
[2017-04-05] MEDS: NITROFURANTOIN MONOHYD MACROCR 100 MG CAP PO SCH ×2 (10:10→18:00)
[2017-04-05] MEDS: NICOTINE 21 MG/24 HR PATCH T-DERMAL SCH (10:10)
[2017-04-05] MEDS ORDERED: lamoTRIgine 25 MG TAB PO SCH (11:30)
--- NOTE | 2017-04-05 12:54 | HHI.HP ---
Provisional Diagnosis Admission Date Apr 04, 2017 at 19:20 [place] I. Adjustment disorder with depressed mood, alcohol use disorder Certification of Person's Competence To Provide Express and Informed Consent I have personally examined Trista Perea , a person being served at [facility] on, Apr 05, 2017 12:41. Express and informed consent means consent voluntarily given in writing, by a competent person, after sufficient explanation and disclosure of the subject matter involved to enable the person to make a knowing and willful decision without any element of force, fraud, deceit, duress, or other form of constraint or coercion. This person is 18 years of age or older, is not now known to be incompetent to consent to treatment with a guardian advocate, and does not have a health care surrogate or proxy currently making medical treatment decisions. I have found this person to be one of the following: [] Competent to provide express and informed consent, as defined above, for voluntary admission to this facility and is competent to provide express and informed consent for treatment. He/she has the consistent capacity to make well reasoned, willful, and knowing decisions concerning his or her medical or mental health treatment. The person fully and consistently understands the purpose of the admission for examination/placement and is fully capable of personally exercising all rights assured [place] [x] Incompetent to provide express and informed consent to voluntary admission, and this is incompetent to provide express and informed consent to treatment. The person must be transferred to involuntary status and a petition for a guardian advocate filed with the Circuit Court. [] Refusing to provide express and informed consent to voluntary admission but is competent to provide express and informed consent for treatment. The person must be discharged or transferred to involuntary status. Form shall be completed within 24 hours of a person's arrival at the receiving facility and filed in the clinical record of each person: 1. Admitted on a voluntary basis 2. Permitted to provide express and informed consent to his/her own treatment 3. Allowed to transfer from involuntary to voluntary status 4. Prior to permitting a person to consent to his or her own treatment after having been previously found incompetent to consent to treatment. History of Present Illness Capacity: Has Capacity HPI Patient is a 57-year-old woman, engaged, unemployed, [facility] [place], recently came down to [place] for vacation, with a past psychiatric history of bipolar depression, 4 previous psychiatric admissions, no previous suicide attempt or self his behavior, with a substance use history significant for alcohol use disorder, marijuana use disorder with previous multiple detoxifications or rehabilitation programs in the past, who was intubated to the medical service for stabilization after recent overdose with clonidine which psychiatry consult was requested and patient was transferred to the inpatient psychiatry unit for further evaluation and management due to recent suicide attempt via overdose. Patient was found lying in hospital bed noted to be somewhat tremulous, noted to be somewhat irritable during interview. Patient states she had been off her medication for 5 days and states that she had come down to [place] for vacation with her boyfriend and was "drinking too much" and had an argument with him and received a text stating that he was going to leave her. Patient states that she felt abandoned and had taken an overdose of her medications, clonidine, "because I did not house to live by myself". Patient states that she does not feel like herself, and needs him to take her home back to [place]. Patient at this time denies any suicidal ideations. Patient states that she has hurt herself in the past by taking too many pills and then calling 911 for help but denied any suicide attempt. She states she would like to be resumed back on her medications at this time and did not want to continue interview today. Family psychiatric history: Denies Past psychiatric history: Previous psychiatric diagnoses of bipolar disorder, 4 previous psychiatric admissions, last time being in January 2017, no previous suicide attempt, no self in his behavior of the patient reporting having past suicidal behavior, denies any history of abuse. Patient reports previous medication regimen including Lamictal, Geodon, Cymbalta, and Adderall. Patient reports her outpatient psychiatrist as Dr. Stoll at [facility] ([phone]) Substance use history: Tobacco use, alcohol use which she restarted drinking in March of this year when she came down to [place] for medication and was drinking about 20 beers daily; reports being previously on the ventral treatments to assist with the cravings. Patient reports marijuana use once every couple of weeks. Patient reports previous multiple detoxification and rehabilitation programs in the past. Past medical history: COPD and hypertension Allergies: Sulfas Social history: Engaged, unemployed, collecting alimony from previous marriage, domiciled with fianc, lives in [place] but came down to [place] for vacation. Review of Systems Respiratory: COMPLAINS OF: Cough Neurologic: COMPLAINS OF: Tremor Except as stated in HPI: all other systems reviewed are Neg Past Psych History Psychological trauma history Denies Violence risk - others (6 mos) low Violence risk - self (6 mos) elevated due to recent suicidal ideation and overdose Substance Abuse History Drugs/Alcohol past 12 months Tobacco use, alcohol use which she restarted drinking in March of this year when she came down to [place] for medication and was drinking about 20 beers daily; reports being previously on the ventral treatments to assist with the cravings. Patient reports marijuana use once every couple of weeks. Patient reports previous multiple detoxification and rehabilitation programs in the past. Past Family Social History Uncoded Allergies: SULFA DRUGS (Allergy, Unknown, 04/03/17) Active Scripts Flumazenil (Flumazenil) 0.1 Mg/Ml Inj, 0.2 MG IV PUSH Q1M Y for SEE LABEL COMMENTS, #1 INJECTION Prov:Terrell Soler DO 04/04/17 [LORazepam INJ] 2 MG/ML INJ No Conflict Check, 2 MG IV PUSH Q15M Y for CIWA > 20 , #2 Prov:Terrell Soler DO 04/04/17 [LORazepam INJ] 2 MG/ML INJ No Conflict Check, 2 MG IV PUSH Q1H Y for CIWA 15-20 , #2 Prov:Terrell Soler DO 04/04/17 Lorazepam (Ativan) 2 Mg Tab, 2 MG PO Q2H Y for CIWA 11-14, #2 TAB Prov:Terrell Soler DO 04/04/17 Lorazepam (Ativan) 1 Mg Tab, 1 MG PO Q4H Y for CIWA 8 - 10, #2 TAB Prov:Terrell Soler DO 04/04/17 Nitrofurantoin Monohydrate Macrocrystals (Nitrofurantoin Monohydrate Macrocrystals) 100 Mg Cap, 100 MG PO BIDPC for UTI for 5 Days, CAP Prov:Terrell Soler DO 04/04/17 Reported Medications Valsartan (Valsartan) 40 Mg Tab, PO DAILY, #30 TAB 0 Refills 04/03/17 Discontinued Reported Medications Gabapentin (Gabapentin) 600 Mg Tab, 600 MG PO DAILY Y for TREMULOUSNESS, #60 TAB 0 Refills 04/03/17 Clonidine (Clonidine) 0.1 Mg Tab, 1 MG PO TID for Blood Pressure Management, # 60 TAB 0 Refills 04/03/17 Amphetamine-Dextroamphetamine (Adderall) 20 Mg Tab, 20 MG PO BID for Hyperactivity Control, #60 TAB 0 Refills Avoid late evening doses. Space doses at least 4 to 6 hours if more than once/day dosing. 04/03/17 Lamotrigine (Lamictal) 100 Mg Tab, 100 MG PO DAILY for Control Seizures, #30 TAB 0 Refills 04/03/[address] (Cymbalta DR) 60 Mg Capdr, 60 MG PO DAILY, #30 CAP 0 Refills 04/03/17 Ziprasidone (Geodon) 40 Mg Cap, 40 MG PO BID, #60 CAP 0 Refills 04/03/17 Current Medications Medications (Trade) Dose Ordered Sig/Mary Alice Route Start Time Stop Time Status Last Admin (Macrobid) 100 mg BIDPC PO 04/05/17 09:00 04/05/17 10:10 (Ativan) 1 mg Q6H PRN PO 04/04/17 20:30 04/05/17 10:21 (Ativan Inj) 1 mg Q6H PRN IM 04/04/17 20:30 (Ativan) 0.5 mg Q12H PRN PO 04/04/17 20:30 (Ativan Inj) 0.5 mg Q12H PRN IM 04/04/17 20:30 (Tylenol) 650 mg Q4H PRN PO 04/04/17 20:30 (Milk Of Magnesia Liq) 30 ml DAILY PRN PO 04/04/17 20:30 (Mag-Al Plus Susp Liq) 30 ml Q6H PRN PO 04/04/17 20:30 04/05/17 00:53 (Habitrol 21 Mg Patch.24 Hr) 1 patch DAILY T-DERMAL 04/05/17 09:00 04/05/17 10:10 (Romazicon Inj) 0.2 mg Q1M PRN IV PUSH 04/04/17 20:30 (Ativan) 1 mg Q4H PRN PO 04/04/17 20:30 (Ativan Inj) 1 mg Q4H PRN IV PUSH 04/04/17 20:30 (Ativan) 2 mg Q2H PRN PO 04/04/17 20:30 (Ativan Inj) 2 mg Q2H PRN IV PUSH 04/04/17 20:30 04/05/17 04:30 (Ativan Inj) 2 mg Q1H PRN IV PUSH 04/04/17 20:30 (Ativan Inj) 2 mg Q15M PRN IV PUSH 04/04/17 20:30 (Geodon) 40 mg BIDPC PO 04/05/17 11:30 (LaMICtal) 25 mg DAILY PO 04/05/17 11:30 (Cymbalta Dr) 20 mg BID PO 04/05/17 11:30 Family Psych History Denies Social History Engaged, unemployed, collecting alimony from previous marriage, domiciled with f[facility], lives in [place] but came down to [place] for vacation. Patient's Strengths (min. 2) Verbal and communicative Physical Exam Vital Signs Vital Signs Date Time Temp Pulse Resp B/P (MAP) Pulse Ox O2 Delivery O2 Flow Rate FiO2 04/05/17 05:00 98.2 60 20 148/77 (100) 98 Lab Results Test 04/05/17 05:54 Blood Urea Nitrogen 6 MG/DL Creatinine 0.56 MG/DL Random Glucose 115 MG/DL Calcium Level 8.5 MG/DL Sodium Level 131 MEQ/L Potassium Level 3.5 MEQ/L Chloride Level 100 MEQ/L Carbon Dioxide Level 26.3 MEQ/L Anion Gap 5 MEQ/L Estimat Glomerular Filtration Rate 112 ML/MIN Triglycerides Level 136 MG/DL Cholesterol Level 197 MG/DL LDL Cholesterol 123 MG/DL HDL Cholesterol 46.4 MG/DL Cholesterol/HDL Ratio 4.24 RATIO Mental Status Examination Appearance: Disheveled Consciousness: Alert Orientation: Person, Place, Date/Time Motor Activity: Other Speech: Unremarkable Language: Adequate Fund of Knowledge: Inadequate Attention and Concentration: Adequate Memory: Unremarkable Mood: Anxious, Irritable Affect: Irritable Thought Process & Associations: Linear Thought Content: Appropriate Hallucination Type: None Delusion Type: None Suicidal Ideation: Yes (denies today) Suicidal Plan: No Suicidal Intention: No Homicidal Ideation: No Homicidal Plan: No Homicidal Intention: No Insight: Poor Judgment: Poor Assessment & Plan Problem List: (1) Bipolar disorder ICD Codes: F31.9 - Bipolar disorder, unspecified (2) Alcohol withdrawal ICD Codes: F10.239 - Alcohol dependence with withdrawal, unspecified Assessment & Plan Estimated LOS: 5-7 days. Patient is a 57-year-old woman who carries a diagnosis of bipolar disorder, alcohol use disorder, who was brought in under [place] act due to recent overdose on clonidine require medical stabilization and was transferred subsequently to the inpatient psychiatry unit due to recent overdose. Patient at this time noted to have withdrawal symptoms present, we' ll continue CIWA protocol. The patient on Cymbalta 20 mg by mouth twice a day, Geodon 40 mg by mouth twice a day, and Lamictal 25 mg daily with upper titration as patient has not taken this medication or 5 days now. We'll petition for involuntary hospitalization, second opinion requested. We'll continue recommendations as per primary medical team. Collateral formation pending. Discharge planning in progress Discharge Planning Patient to return back to her residence 1 psychiatrically and medically cleared Alex Campoverde MD Apr 05, 2017 12:54
[2017-04-05] MEDS ORDERED: PILL SPLITTER OTHER PRN (13:00)
[2017-04-05] MEDS ORDERED: lamoTRIgine 100 MG TAB PO ONE (13:00)
[2017-04-05] MEDS: DULoxetine HCl DR 20 MG CAP PO SCH ×2 (13:33→21:57)
[2017-04-05] MEDS: ZIPRASIDONE HCL 40 MG CAP PO SCH ×2 (13:33→18:00)
[2017-04-05 15:45] LABS: HEMOGLOBIN A1C 6.1 % (4.3-6.0)
[2017-04-05 18:00] VITALS: BP 150/70; PULSE 98; RESP 16; TEMP 97.6; O2SAT 97
[2017-04-06 06:06] VITALS: BP 102/50; PULSE 90; RESP 16; TEMP 97.6; O2SAT 93
[2017-04-06] MEDS: ZIPRASIDONE HCL 40 MG CAP PO SCH (08:57)
[2017-04-06] MEDS: NICOTINE 21 MG/24 HR PATCH T-DERMAL SCH (08:57)
[2017-04-06] MEDS: NITROFURANTOIN MONOHYD MACROCR 100 MG CAP PO SCH (08:57)
[2017-04-06] MEDS: DULoxetine HCl DR 20 MG CAP PO SCH (08:57)
--- NOTE | 2017-04-06 11:40 | HHI.DS ---
Psychiatry Discharge Summary Inpatient Psychiatric care?: Yes Advance Directive: No Reason Not Provided: refused Mental Health AdvanceDirective: No Health Care Proxy: No (refused) Admission Admission Date Apr 04, 2017 at 19:20 Admission Diagnosis: (1) Bipolar disorder ICD Code: F31.9 - Bipolar disorder, unspecified (2) Alcohol withdrawal ICD Code: F10.239 - Alcohol dependence with withdrawal, unspecified Brief History Patient is a 57-year-old woman, engaged, unemployed, domicile with fianc in [place], recently came down to [place] for vacation, with a past psychiatric history of bipolar depression, 4 previous psychiatric admissions, no previous suicide attempt or self his behavior, with a substance use history significant for alcohol use disorder, marijuana use disorder with previous multiple detoxifications or rehabilitation programs in the past, who was intubated to the medical service for stabilization after recent overdose with clonidine which psychiatry consult was requested and patient was transferred to the inpatient psychiatry unit for further evaluation and management due to recent suicide attempt via overdose. Patient was found lying in hospital bed noted to be somewhat tremulous, noted to be somewhat irritable during interview. Patient states she had been off her medication for 5 days and states that she had come down to [place] for vacation with her boyfriend and was "drinking too much" and had an argument with him and received a text stating that he was going to leave her. Patient states that she felt abandoned and had taken an overdose of her medications, clonidine, "because I did not house to live by myself". Patient states that she does not feel like herself, and needs him to take her home back to [place]. Patient at this time denies any suicidal ideations. Patient states that she has hurt herself in the past by taking too many pills and then calling 911 for help but denied any suicide attempt. She states she would like to be resumed back on her medications at this time and did not want to continue interview today. Family psychiatric history: Denies Past psychiatric history: Previous psychiatric diagnoses of bipolar disorder, 4 previous psychiatric admissions, last time being in January 2017, no previous suicide attempt, no self in his behavior of the patient reporting having past suicidal behavior, denies any history of abuse. Patient reports previous medication regimen including Lamictal, Geodon, Cymbalta, and Adderall. Patient reports her outpatient psychiatrist as Dr. Stoll at [facility] ([phone]) Substance use history: Tobacco use, alcohol use which she restarted drinking in March of this year when she came down to [place] for medication and was drinking about 20 beers daily; reports being previously on the ventral treatments to assist with the cravings. Patient reports marijuana use once every couple of weeks. Patient reports previous multiple detoxification and rehabilitation programs in the past. Past medical history: COPD and hypertension Allergies: Sulfas Social history: Engaged, unemployed, collecting alimony from previous marriage, domiciled with egni, lives in [place] but came down to [place] for vacation. Tobacco Use In Past 30 Days: 5 or More Cigarettes/Day Alcohol Use: Monthly or Less Hospital Course Patient's hospital course was uneventful commissures compliant with medications in milieu from admission. Patient seen today by me with nurse know, patient alert oriented calm cooperative now denies suicidality homicidality voices or visions. Acknowledge the miss use of alcohol stating that she and her geni motorhome down here from [place] to [place] before giving up alcohol. Patient today feels good is no signs of withdrawal. Sheri boyfriend wish to return to [place] today. At this time patient will order meets criteria for inpatient psychiatric hospitalization thus patient be discharged to herself. No Rx by me. She may continue her own schedule medications. Follow-up mental health services and substance abuse services in [place] Results Blood Pressure 102 / 50 Vital Signs Date Time Temp Pulse Resp B/P (MAP) Pulse Ox O2 Delivery O2 Flow Rate FiO2 04/06/17 06:06 97.6 90 16 102/50 (67) 93 Laboratory Tests Test 04/05/17 05:54 Blood Urea Nitrogen 6 MG/DL (7-18) Random Glucose 115 MG/DL (74-106) Sodium Level 131 MEQ/L (136-145) Hemoglobin A1c 6.1 % (4.3-6.0) LDL Cholesterol 123 MG/DL (0-99) Laboratory Results Test 04/05/17 05:54 Cholesterol Level 197 MG/DL (120-200) HDL Cholesterol 46.4 MG/DL (40.0-60.0) Hemoglobin A1c 6.1 % (4.3-6.0) LDL Cholesterol 123 MG/DL (0-99) Triglycerides Level 136 MG/DL (42-150) Summary of Procedures None done Pending results at discharge: No Medications # of Antipsychotic meds at D/C: 0 Approp Antipsych med options 1 - Minimum of three failed multiple trials of monotherapy. 2 - Documented plan to taper to monotherapy due to previous use of multiple meds OR cross-taper in progress at D/C. 3 - Documentation of augmentation of Clozapine. 4 - Justification other than those listed in allowable values 1-3, document here : Discharge Discharge Date: Apr 06, 2017 Discharge Diagnosis: (1) Bipolar disorder Diagnosis: Principal ICD Code: F31.9 - Bipolar disorder, unspecified (2) Alcohol withdrawal Diagnosis: Secondary ICD Code: F10.239 - Alcohol dependence with withdrawal, unspecified Pt Condition on Discharge: Stable Discharge Disposition: Discharge Home Discharge Instructions Diet Instructions: As Tolerated, No Restrictions Activities you can perform: Regular-No Restrictions Scheduled Appointment: follow-up mental health services and addictions counseling in [place] Discharge Time > 30 minutes Mental Status Examination Appearance: Disheveled Consciousness: Alert Orientation: Person, Place, Date/Time Motor Activity: Other Speech: Unremarkable Language: Adequate Fund of Knowledge: Inadequate Attention and Concentration: Adequate Memory: Unremarkable Mood: Anxious, Irritable Affect: Irritable Thought Process & Associations: Linear Thought Content: Appropriate Hallucination Type: None Delusion Type: None Suicidal Ideation: Yes (denies today) Suicidal Plan: No Suicidal Intention: No Homicidal Ideation: No Homicidal Plan: No Homicidal Intention: No Insight: Poor Judgment: Poor Discharge/Advance Care Plan Health Problems: (1) Bipolar disorder (2) Alcohol withdrawal Goals to promote your health * To prevent worsening of your condition and complications * To maintain your health at the optimal level Directions to meet your goals Take your medications as prescribed Follow your dietary instruction Follow activity as directed Keep your appointments as scheduled Take your immunizations and boosters as scheduled If your symptoms worsen call your PCP, if no PCP go to Urgent Care Center or Emergency Room For 21/09 questions related to your inpatient stay or results of tests pending at discharge, please contact Dr. Richmond Santiago at Smoking is Dangerous to Your Health. Avoid second hand smoking Richmond Santiago MD Apr 06, 2017 11:40
== END 2017-04-06 13:08 | disposition home or self-care (01) | DRG 885 ==
LOC: H4EA 19:20 → H260 04-05 18:54
PROVIDERS: ADMIT Student in an Organized Health Care Education/Training Program; ATTEND Student in an Organized Health Care Education/Training Program
DX: F31.32 Bipolar disorder, current episode depressed, moderate (principal); I10 Essential (primary) hypertension; F10.239 Alcohol dependence with withdrawal, unspecified; J44.9 Chronic obstructive pulmonary disease, unspecified; F12.90 Cannabis use, unspecified, uncomplicated; Z72.0 Tobacco use; Y90.9 Presence of alcohol in blood, level not specified; Z79.899 Other long term (current) drug therapy; Z91.5 Personal history of self-harm
CPT/HCPCS: 80048; 80061; 83036; J2060